=== PATIENT | male | born 1950 | race Caucasian/White ===

== ENCOUNTER 2022-01-31 20:58 | Inpatient (IN) ==
[2022-02-01] MEDS ORDERED: Melatonin 3 MG TABLET PO PRN (15:24)
[2022-02-01] MEDS ORDERED: Naloxone 0.4 MG/ML INJ IVP PRN (15:24)
[2022-02-01] MEDS ORDERED: Ondansetron ODT 4 MG TAB.RAPDIS SL PRN (15:24)
[2022-02-01] MEDS ORDERED: *HR* Dextrose 50 % in Water (Syg) 50 ML SYRINGE IVP PRN (15:26)
[2022-02-01] MEDS ORDERED: D5% in Water 1,000 ML IVC PRN (15:26)
[2022-02-01] MEDS ORDERED: Dextrose Gel 15 GM/37.5 ML TUBE PO PRN ×2 (15:26)
[2022-02-01] MEDS: *HR* LORazepam 1 MG TABLET PO PRN (15:31)
[2022-02-01] MEDS: Insulin LISPRO 300 UNITS/3 ML VIAL SUBQ SCH ×2 (18:46→20:39)
[2022-02-01] MEDS ORDERED: Divalproex Sodium 125 MG Sprinkle Capsule (DR) PO SCH (21:00)
[2022-02-01] MEDS: *HR* Heparin 5,000 UNIT/ML VIAL SQ SCH (22:09)
[2022-02-02] MEDS: *HR* Heparin 5,000 UNIT/ML VIAL SQ SCH ×3 (05:11→20:07)
[2022-02-02] MEDS ORDERED: Acetaminophen 325 MG TABLET PO PRN (09:22)
[2022-02-02] MEDS: Insulin LISPRO 300 UNITS/3 ML VIAL SUBQ SCH ×4 (09:23→21:00)
[2022-02-02] MEDS ORDERED: *HR* HYDROcodone/Acet 7.5/325 mg TABLET PO PRN (09:37)
[2022-02-02] MEDS: Budesonide/Formoterol 160/4.5 1 PUFF INH IH SCH ×2 (10:34→20:07)
[2022-02-02 12:10] LABS: Basophils % 0.4 %; Eosinophils % 0.4 %; Hematocrit 42.5 % (37.5-50.1); Immature Granulocytes % 0.3 % (0-4); Lymphocytes # 1.9 K/mcL (0.6-4.6); Lymphocytes % 24.8 %; Mean Corpuscular HGB Conc 32.9 g/dL (31.6-35.5); Mean Corpuscular Hemoglobin 29.2 pg (28.0-33.3); Mean Corpuscular Volume 88.5 fL (83.0-100.0); Mean Platelet Volume 10.1 fL (9.4-12.4); Monocytes # 0.6 K/mcL (0.0-1.3); Monocytes % 8.2 %; Neutrophils # 5.1 K/mcL (1.6-8.9); Platelet Count 276 K/mcL (140-400); Red Cell Distribution Width 13.6 % (11.5-14.5); Segmented Neutrophils % 65.9 %; White Blood Count 7.7 K/mcL (4.3-11.1)
[2022-02-02 12:32] LABS: BUN/Creatinine Ratio 13 (6-26); Blood Urea Nitrogen 11 mg/dL (8-23); Calcium 9.9 mg/dL (8.6-10.3); Carbon Dioxide 19 mEq/L (23-29); Chloride 103 mEq/L (98-107); Glucose 124 mg/dL (70-105); Osmolality,Calculated 279 (280-300); Potassium 3.8 mEq/L (3.5-5.1); Sodium 134 mEq/L (136-145)
[2022-02-02 12:57] LABS: Estimated Average Glucose 137 mg/dl; Hemoglobin A1C 6.4 %
[2022-02-02] MEDS: *HR* LORazepam 1 MG TABLET PO PRN ×2 (13:15→21:55)
[2022-02-02 15:40] LABS: Bacteria,Urine Few per hpf (None-Few); Bilirubin,Urine Negative (Negative); Blood,Urine Negative (Negative); Clarity,Urine Turbid (Clear); Color,Urine Yellow (Yellow); Glucose,Urine (UA) Normal (Normal); Ketones,Urine 40 mg/dL (Negative); Leukocyte Esterase,Urine Negative (Negative); Mucus,Urine Few per lpf (None-Few); Nitrite,Urine Negative (Negative); PH,Urine 8.5 pH Units (5.0-8.0); Protein,Urine 200 mg/dL (Neg-Trace); Specific Gravity,Urine 1.023 (1.010-1.025); Squamous Epithelial Cell,Urine Few per hpf (None-Few)
[2022-02-02] MEDS: Divalproex Sodium 125 MG Sprinkle Capsule (DR) PO SCH (20:06)
[2022-02-02] MEDS: Gabapentin 100 MG CAPSULE PO SCH (20:07)
[2022-02-02] MEDS: Ipratropium/Albuterol Neb 3 ML IH SCH (20:07)
[2022-02-03] MEDS: Ipratropium/Albuterol Neb 3 ML IH SCH ×3 (04:28→16:17)
[2022-02-03] MEDS: *HR* Heparin 5,000 UNIT/ML VIAL SQ SCH ×3 (06:15→21:28)
[2022-02-03] MEDS: Budesonide/Formoterol 160/4.5 1 PUFF INH IH SCH (08:12)
[2022-02-03] MEDS ORDERED: Divalproex Sodium 125 MG Sprinkle Capsule (DR) PO SCH (09:00)
[2022-02-03] MEDS ORDERED: cefTRIAXone 1,000 MG in 0.9 % Sodium Chloride Mini Bag 100 ML IVPB SCH (09:00)
[2022-02-03] MEDS ORDERED: Atropine Sulfate 1% 40 DROP/2 ML BOTTLE BOTH EYES SCH (09:00)
[2022-02-03] MEDS ORDERED: traZODone 50 MG TABLET PO SCH (09:00)
[2022-02-03] MEDS ORDERED: Lidocaine -MPF 1% 5 ML AMPUL ONE (09:38)
[2022-02-03] MEDS: Gabapentin 100 MG CAPSULE PO SCH ×2 (10:01→21:27)
[2022-02-03] MEDS: Insulin LISPRO 300 UNITS/3 ML VIAL SUBQ SCH ×4 (10:12→21:27)
[2022-02-03] MEDS: Divalproex Sodium 125 MG Sprinkle Capsule (DR) PO SCH (16:22)
[2022-02-03 21:26] VITALS: BP 118/69; PULSE 89; TEMP 98.6; O2SAT 98
[2022-02-03] MEDS ORDERED: *HR* Heparin 5,000 UNIT/ML VIAL IVP ONE (23:58)
== END 2022-02-03 23:59 | disposition other institution (70) | DRG 885 ==
LOC: EMEROOARM 20:58 → 2NENU 20:58
PROVIDERS: ADMIT Internal Medicine; ATTEND Internal Medicine